=== PATIENT | female | born 1945 | race Caucasian/White ===

== ENCOUNTER 2020-04-13 20:04 | Observation (INO) | payer MEDICARE ==
[~2020-04-13 20:04] MED LIST: Iopamidol-370 76% 500 ML 1 ML ONE
[2020-04-13 20:45] LABS: #Lymphocytes 0.9 thou/uL (1.20-3.40); #Monocytes 1.5 thou/uL (0.11-0.59); #Neutrophils 12.2 thou/uL (1.40-6.50); %Basophils 0.3 % (0.0-1.0); %Eosinophils 0.3 % (0.0-10.0); %Lymphocytes 5.9 % (21.0-51.0); %Monocytes 9.9 % (0.0-10.0); %Neutrophils 83.6 % (42.0-75.0); Hemoglobin 12.2 g/dL (12.0-16.0); Mean Corpuscular HGB CONC 34.2 g/dL (32.0-36.0); Mean Corpuscular Hemoglobin 33.2 pg (27.0-31.0); Mean Platelet Volume 7.1 fL (7.4-10.4); Platelet Count 221 thou/uL (130-400); RBC Distribution Width 11.6 % (11.5-14.5); Red Blood Cell (RBC) Count 3.67 mill/uL (4.20-5.40); White Blood Cell (WBC) Count 14.6 thou/uL (4.8-10.8)
--- NOTE | 2020-04-13 21:04 | RAD ---
PELVIS ONE VIEW: 04/13/20 HISTORY: Injury. Fall. COMPARISON: None. FINDINGS: Mild narrowing of both hip joints. Mild narrowing of the pubic symphysis. Moderate enthesopathic abhijeet nges. Calcifications along the hamstring tendons. Moderate left SI joint narrowing. Femoral heads and necks are without fracture. There are capsular ca lcifications of both hips. IMPRESSION: No acute displaced fracture or malalignment. POS: HOME
[2020-04-13 21:06] LABS: ALT (SGPT) 16 U/L (8-55); AST (SGOT) 45 U/L (5-34); Albumin 3.8 g/dL (3.4-4.8); Alkaline Phosphatase 81 U/L (40-110); Anion Gap 17 mmol/L (10-20); BUN (Urea Nitrogen) 43 mg/dL (9.8-20.1); Bilirubin, Total 0.9 mg/dL (0.2-1.2); CK (CPK) 849 U/L (29-168); Calc. Creatinine Clearance 0 mL/min (70-130); Calcium 10.1 mg/dL (7.8-10.44); Carbon Dioxide 29 mmol/L (23-31); Chloride 97 mmol/L (98-107); Globulin 2.8 g/dL (2.4-3.5); Glucose 109 mg/dL (83-110); Potassium 3.1 mmol/L (3.5-5.1); Protein, Total 6.6 g/dL (6.0-8.3); Sodium 140 mmol/L (136-145)
--- NOTE | 2020-04-13 21:10 | RAD ---
CHEST ONE VIEW: 04/13/20 HISTORY: Injury. COMPARISON: Thoracic spine radiograph from 2016. FINDINGS: There is cement within two mid thoracic vertebrae. Peripheral opacities in the left lower lobe. Multiple likely acute right rib fractures and small extrapleural hematoma. No definite pneumothorax. Heart size upper limits of normal as well as the pulmonary vasculature. Right glenoid osseous Bankart and humeral head Hill-Sachs deformity. IMPRESSION: 1. Multiple right rib fractures with small extrapleural hematoma. No definite pneumothorax. 2. Peripheral opacity left lung base may reflect aspiration or focal atelectasis. Follow-up radi ograph in 3 to 6 weeks recommended. 3. Evidence of recent right shoulder dislocation. POS: HOME
[2020-04-13] MEDS ORDERED: Ondansetron PF 4 MG/2 ML Vial ONE (21:11)
[2020-04-13] MEDS ORDERED: Fentanyl 100 MCG/2 ML VIAL ONE (21:11)
--- NOTE | 2020-04-13 21:13 | RAD ---
RIGHT HUMERUS TWO VIEW: 04/13/20 HISTORY: Fall. COMPARISON: None. FINDINGS: There appears to be a Hill-Sachs and osseous Bankart deformity of the right shoulder. Chronic lateral epicondylitis. IMPRESSION: Findings of right shoulder dislocation for which the right shoulder is currently reduced. Hill-Sachs deformity of posterolateral humeral head and osseous Bankart lesion of the anterior inferior glenoid . POS: HOME
--- NOTE | 2020-04-13 21:15 | CT ---
CT BRAIN WITHOUT CONTRAST: 04/13/20 HISTORY: Fall. COMPARISON: None. 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 No acute hemorrhage or infarct. No midline shift of mass effect. Ventricular size and extra-axial CSF spaces are normal for age. Calvarium is intact. The paranasal si nuses and mastoids are relatively clear. IMPRESSION: No acute posttraumatic intracranial sequela. POS: HOME
--- NOTE | 2020-04-13 21:21 | CT ---
CT CERVICAL SPINE WITHOUT CONTRAST: 04/13/20 HISTORY: Fall. COMPARISON: None. FINDINGS: Dense calcifications of the transverse ligament of the dens. The occipital condyles are intact. No od ontoid fracture. Cervical spine transverse processes are intact. The spinous processes are intact. The visualized upper ribs are intact. Likely chronic anterior superior end plate height loss of C7 an d T1 vertebral bodies with 30-40% anterior height loss. No linear lucency or sclerosis to suggest an acute component of these fractures. Osseous fusion of the right C4-5 posterior elements. No prevertebral hematoma. No cervical adenopathy. IMPRESSION: 1. No acute cervical spine fracture or malalignment. 2. [place] to be chronic superior end plate compression deformities at C7 and T1 without sclerosis nor cortical or medullary lucency to suggest acuity. POS: HOME
[2020-04-13 21:27] LABS: CKMB 5.8 ng/mL (0-6.6)
--- NOTE | 2020-04-13 22:19 | CT ---
CT chest with IV contrast CT abdomen and pelvis with IV contrast CT thoracic spine noncontrast CT lumbar spine noncontrast HISTORY: Fall. Chest and abdomen injury. Back injury. FINDINGS: Small amount of fluid is present within the dependent portion of the right pleural space wi th adjacent atelectasis and parenchymal scarring. Calcified granuloma at the right lung bases consistent with healed granulomatous disease. Mild chronic appearing scarring is present in the right upper lobe and the left posterior lung base. Acute appearing fractures involve the posterior aspect of right ribs 5, 6, and 7, with some comminuti on and mild expansion. No evidence of pneumothorax. Comminuted mildly displaced fracture also involves the inferior aspect of the right scapular body. Old healed bilateral rib fractures are also apparent. A 0.2 cm calculus is present within a nondilated calyx at the inferior pole of the atrophied left kid tanner. Cysts arise from the cortex of each kidney, measuring up to 1.1 cm at the superior pole of the right kidney and 1.6 cm the inferior pole of the left kidney. No evidence of bowel obstruction or inflammation. Vertebroplasty cement is associated with mild compression deformities of T7 and T8 vertebral bodies. No acute fracture or dislocation of the thoracolumbar spine evident. There are scattered mild to moderate degenerative changes. IMPRESSION : Right posterior rib fractures 5 through 7 and right scapular fracture. Small volume hemothorax. No ev idence of pneumothorax. Tiny nonobstructing left renal calculus. Other incidental-type findings as detailed above.
[2020-04-13 23:26] LABS: Bacteria/HPF None Seen HPF (None Seen); Bilirubin Negative (Negative); Blood, Urine Negative (Negative); Clarity Clear (Clear); Glucose, Urine (Dipstick) Normal (Negative); Ketone, Urine Negative (Negative); Leukocyte 75 Leu/uL (Negative); Nitrite Negative (Negative); Protein, Urine (Dipstick) Negative (Neg-Trace); Specific Gravity, Urine 1.039 (1.002-1.036); Squamous Epithelial 0-3 HPF (0-3); Urobilinogen Normal mg/dL (Less than 2)
[2020-04-14] MEDS ORDERED: Ondansetron PF 4 MG/2 ML Vial IVP PRN (00:07)
[2020-04-14] MEDS ORDERED: Ondansetron ODT 4 MG TAB PO PRN (00:07)
[2020-04-14] MEDS ORDERED: Cyclobenzaprine 10 MG TAB PO PRN (00:07)
[2020-04-14] MEDS ORDERED: Dextrose 50% Abboject 50 ML SYRINGE SLOW IVP PRN (00:07)
[2020-04-14] MEDS ORDERED: Dextrose 5% in Water 1,000 ML IV PRN (00:07)
--- NOTE | 2020-04-14 01:12 | HP ---
REQUESTING PHYSICIAN: Dr. Shah. ATTENDING SURGEON: Dr. Walton. CONSULTATIONS: Orthopedics, Dr. Francis. HISTORY OF PRESENT ILLNESS: The patient is a 75-year-old woman, who reports falling twice yesterday evening, the first one approximately 1900. After moving some boxes around, she tripped and fell over one of the boxes. She was able to get up, and later that night in the dark, she had forgotten that she had moved the boxes and had tripped over them again at approximately 11 o'clock, falling down, and was unable to get up at that time. The patient was unable to get to her phone. Fortunately, her neighbor whom she takes daily walks, was able to have EMS and the police department do welfare check, and they found the patient on the floor in her house. She was brought to the emergency department, where she underwent evaluation and examination, was noted to have right-sided rib fractures, right shoulder that appeared to have been dislocated and subsequently reduced, and elevated CPK and slightly elevated/indeterminate troponin. At which time, we were asked to evaluate the patient for admission and obtain orthopedic consultations. The patient denied loss of consciousness. The patient denied any syncopal events surrounding her fall, and she denied chest pain, shortness of breath, or radiating chest pain. ALLERGIES: ASPIRIN. THE PATIENT DOES NOT REMEMBER THE REACTION, JUST KNOWS THAT SHE WAS TOLD NOT TO TAKE IT. CURRENT MEDICATION: She does not recall, though she knows that she takes something for her high blood pressure. PAST MEDICAL HISTORY: Hypertension, hypothyroidism, chronic kidney disease, compression fractures 3 years ago. SURGICAL HISTORY: The patient reports pacemaker surgery and back surgery. SOCIAL HISTORY: The patient lives at home alone. She denies drug, tobacco, or alcohol use. REVIEW OF SYSTEMS: A 10-point review of systems is negative as otherwise stated. PHYSICAL EXAMINATION: VITAL SIGNS: Blood pressure 116/63, heart rate 69, respirations 20, oxygen saturation 95% on 2 L via nasal cannula, temperature is 98.0. GENERAL: The patient is resting comfortably in bed. She is awake, alert, conversant, appropriate. Her Cavour Coma Scale is 15. She is a poor historian regarding her medical history and surgical history. HEENT: Head is normocephalic. Eyes, extraocular motion intact. PERRLA bilaterally. Ears are atraumatic without discharge. Nose is atraumatic without discharge. Oropharynx is clear. NECK: Nontender. Trachea is midline with no JVD. CHEST: Clear to auscultation with moderate inspiratory and expiratory efforts. She is somewhat limited due to pain on her right side consistent with her fractures. HEART: Regular rate and rhythm. ABDOMEN: Soft, nontender with active bowel sounds. EXTREMITIES: Neurovascularly intact x4. The patient does have tenderness to palpation to her right shoulder, and she has right chest wall pain. BACK: By report is atraumatic and nontender. LABORATORY FINDINGS: White blood cell count 14.6, hemoglobin 12.2, hematocrit 35.6, platelets are 221. Sodium 140, potassium 3.1, chloride 97, CO2 of 29, BUN 43, creatinine 1.50, glucose 109. LFTs are unremarkable. CPK 849. CK-MB 5.8. Troponin 0.067. Urinalysis; positive leukocyte esterase, 4-6 wbc's, no bacteria seen. RADIOGRAPHIC FINDINGS: CT of the brain without contrast shows no acute posttraumatic intracranial sequela. CT of the C-spine without contrast shows no acute cervical spine fracture or malalignment. CT of the chest, abdomen, and pelvis with IV contrast shows right posterior rib fractures 5 through 7 and a right scapular fracture. There is also noted to have a small volume hemothorax without pneumothorax. AP chest x-ray shows multiple right-sided rib fractures. Views of the right humerus show findings of a right shoulder dislocation, for which the right shoulder is currently reduced. Hill-Sachs deformity of posterolateral humeral head and osseous Bankart lesion of the anterior-inferior glenoid are noted. AP pelvis shows no acute displaced fracture or malalignment. ASSESSMENT/PLAN: 1. Status post fall with remote presentation. 2. Right-sided rib fractures, 5, 6, and 7. 3. Right shoulder injury, consistent with recent dislocation, currently reduced. 4. Rhabdomyolysis. 5. Indeterminate troponin without EKG changes. PLAN: Plan will be to admit the patient to the surgical floor. We will repeat her CK, troponin in the morning. We will repeat her chest x-ray in the morning. She will have pulmonary toilet, gastritis, mechanical VTE prophylaxis. The patient was given 2 L of normal saline here in the emergency department for her elevated CK. We will repeat her labs and follow this. We have reduced her normal saline to a rate of 120 mL/h. We will follow her urinary output also. The evaluation, examination, laboratory, and radiographic findings were discussed with Dr. Walton after this dictation. Job ID: [id number]
[2020-04-14 01:31] LABS: Troponin I 0.076 ng/mL (< 0.028)
[2020-04-14] MEDS: Sodium Chloride 0.9% 1,000 ML IV SCH ×3 (03:17→18:28)
[2020-04-14] MEDS: traMADol HCl 50 MG TAB PO PRN ×3 (03:20→16:15)
[2020-04-14 03:29] VITALS: BMI 20.5
[2020-04-14 04:07] LABS: #Eosinphils 0.1 thou/uL (0.0-0.7); #Lymphocytes 0.9 thou/uL (1.20-3.40); #Monocytes 1.1 thou/uL (0.11-0.59); #Neutrophils 8.9 thou/uL (1.40-6.50); %Basophils 0.2 % (0.0-1.0); %Eosinophils 0.8 % (0.0-10.0); %Lymphocytes 7.8 % (21.0-51.0); %Neutrophils 81.2 % (42.0-75.0); Hemoglobin 10.6 g/dL (12.0-16.0); Mean Corpuscular HGB CONC 33.8 g/dL (32.0-36.0); Mean Corpuscular Hemoglobin 33.1 pg (27.0-31.0); Mean Corpuscular Volume 97.9 fL (78.0-98.0); Platelet Count 191 thou/uL (130-400); RBC Distribution Width 11.7 % (11.5-14.5); White Blood Cell (WBC) Count 10.9 thou/uL (4.8-10.8)
[2020-04-14 04:22] LABS: Anion Gap 14 mmol/L (10-20); BUN (Urea Nitrogen) 37 mg/dL (9.8-20.1); CK (CPK) 638 U/L (29-168); Calc. Creatinine Clearance 39 mL/min (70-130); Calcium 8.8 mg/dL (7.8-10.44); Carbon Dioxide 29 mmol/L (23-31); Chloride 99 mmol/L (98-107); Glucose 127 mg/dL (83-110); Magnesium 1.7 mg/dL (1.6-2.6); Phosphorus 2.6 mg/dL (2.3-4.7); Sodium 139 mmol/L (136-145)
[2020-04-14 04:24] LABS: Potassium 2.8 mmol/L (3.5-5.1)
[2020-04-14 04:26] LABS: Troponin I 0.063 ng/mL (< 0.028)
[2020-04-14] MEDS ORDERED: Magnesium 2 GM/50 ML 2 GM in Premix Bag 1 BAG IVPB SCH (05:00)
[2020-04-14] MEDS: Acetaminophen 325 MG TAB PO SCH ×4 (05:17→23:27)
[2020-04-14] MEDS ORDERED: Potassium Phosphate 30 MMOL in Sodium Chloride 0.9% 250 ML 250 ML IVPB SCH (05:30)
--- NOTE | 2020-04-14 08:41 | RAD ---
PORTABLE CHEST: COMPARISON: Prior day's study. HISTORY: Fall with rib fractures, followup. FINDINGS: Heart size is within normal limits. Blunting to the left costophrenic angle is a similar finding to the previous exam. Right-sided rib fractures are again noted. I do not appreciate a definite pneumo thorax on this exam. Pleural changes in the right lung are also stable. IMPRESSION: Essentially stable chest. POS: JOSE LUIS
[2020-04-14] MEDS ORDERED: Famotidine 20 MG TAB PO SCH (09:00)
[2020-04-14] MEDS: Gabapentin 100 MG CAP PO SCH ×2 (09:12→21:03)
--- NOTE | 2020-04-14 13:51 | CON ---
DATE OF CONSULTATION: REQUESTING PHYSICIAN: Isaias Walton MD CONSULTING PHYSICIAN: Dylan Francis MD REASON FOR CONSULTATION: Right shoulder scapular fracture with shoulder dislocation and spontaneous relocation. BRIEF CLINICAL HISTORY: Selena is a 75-year-old female who was admitted by the trauma team after she fell yesterday evening at home, resulting in several rib fractures on the right and a scapular fracture and a shoulder dislocation, which was spontaneously reduced. It is a mechanical fall and she tripped over some boxes that she had been moving. Our service has been consulted for evaluation of the shoulder. Plain radiographs have been obtained, which demonstrated a Hill-Sachs deformity, suggestive of dislocation event, but otherwise the shoulder has been reduced. No fractures were identified. PHYSICAL EXAMINATION: Visual inspection of the right upper extremity demonstrates to have normal external landmarks, can internally and externally rotate. She can abduct, but she has provocative discomfort with abduction of the shoulder. Forward flexion is limited with pain to about 35 to 40 degrees of forward flexion. She is neurovascularly intact in the right upper extremity. Tenderness is elicited with palpation along the shoulder joint line. IMAGING STUDIES: Two-view right humerus demonstrates Hill-Sachs deformity of proximal humerus, but otherwise no fracture has been identified. IMPRESSION: 1. Right shoulder traumatic dislocation with spontaneous relocation and reduction. 2. Right scapular wing tip fracture. PLAN: We will have the patient placed in a sling for comfort and no operative management is recommended at this time. We will see the patient back in clinic in 3 to 4 weeks for clinical examination. Job ID: [id number]
--- NOTE | 2020-04-14 13:59 | PRG ---
DATE OF SERVICE: 04/14/2020 The patient was seen by Dr. Sixto Morton. SUBJECTIVE: Ms. Mccartney is a 75-year-old female, hospital day #1, status post falling and being found on the ground for 20+ hours. She states there is mechanical fall. She initially fell over a box and then she was fine at that time, feels like her 2nd fall actually reduced her right shoulder dislocation and she laid in the bathroom for some time. She did have a slight elevation in her troponin. Therefore, she was placed on telemetry. quality assurance monitor body shows a paced and sinus rhythm throughout the night with no further ectopy. She has no chest pain and no shortness of breath, and actually wants to get up and go home. She has no echocardiogram in our system. She said it has been all over a year since she has had an echocardiogram. She denies any type of syncope. She denies any nausea. Denies any vomiting. Denies any pain other than her shoulder and rib pain. Repeat x-ray today is stable with no pneumothorax. Rib fractures on the right side are noted. Her troponin has remained stable. An echocardiogram is pending. OBJECTIVE: VITAL SIGNS: Temperature is 98.2, blood pressure 118/75, heart rate is 70, breathing 22 times per minute, and 96% on 2 L oxygen nasal cannula, which she wears at home at night only. GENERAL: A 75-year-old female was sitting up, does have some bruises noted, but in no acute distress. Nontoxic appearing. HEENT: Normocephalic and atraumatic. Trachea is midline. No JVD is appreciated. RESPIRATORY: Equal rise and fall. Bilateral breath sounds clear to auscultation of upper and lower lobes bilaterally. CARDIOVASCULAR: She does have murmur noted, pacemaker noted in left chest, but has regular rhythm. She has no edema. ABDOMEN: Soft and nontender. PELVIS: Stable. MUSCULOSKELETAL: She is able to move her extremities. Did not have her fully range her upper extremity secondary to her right shoulder previous dislocations/subluxation and this is in a sling. NEUROLOGIC: Alert and oriented to person, place, time, and event. GCS is 15. SKIN: Warm and dry. PSYCHIATRIC: Normal mood and affect. LABORATORY DATA: From today: A white blood cell count is 10.0, platelets are 191, and hemoglobin and hematocrit are 7.6 and 31.4 respectively. Sodium is 139, potassium 2.8, chloride is 99, CO2 is 29, creatinine 1.29, and glucose 127. Phosphorus is 2.6. Magnesium is 1.8. CK is 638. Troponin 0.067 to 0.076 to 0.063. Urine has some casts, high specific gravity with trace leukocyte esterase, no nitrites, blood, or ketones. Chest x-ray today is stable. ASSESSMENT: 1. Status post fall, mechanical in nature. 2. Right rib fractures 5, 6, and 7. 3. Right shoulder injury, dislocation versus subluxation, has been reduced in a sling. 4. Very mild rhabdomyolysis, now it is improving. 5. History of cardiac disease and acute respiratory failure, requiring oxygen at night. PLAN: 1. Continue to monitor the patient. 2. PT/OT orders. 3. Echocardiogram. 4. Orthopedics has been consulted. Will await for their recommendations, likely nonoperative for the shoulder. May need followup. 5. Pain control as needed. 6. Continue all other supportive care. We will start DVT prophylaxis today. Follow up on the echocardiogram. Job ID: [id number]
[2020-04-14 14:56] LABS: SARS-CoV-2 MS2 Positive; SARS-CoV-2 N Gene Negative; SARS-CoV-2 S Gene Negative; SARS-CoV-2 by NAA Not Detected (NotDetected); SARS-CoV-2 orf1ab Negative
[2020-04-14] MEDS ORDERED: traMADol HCl 50 MG TAB PO PRN (17:20)
[2020-04-14] MEDS ORDERED: oxyCODONE 5 MG TAB PO PRN (19:59)
[2020-04-14] MEDS ORDERED: Gabapentin 300 MG CAP PO SCH (21:00)
[2020-04-14] MEDS ORDERED: FLU VACC QS2020-21(65YR UP)/PF 240 MCG/0.7 ML SYRINGE IM ONE (21:00)
[2020-04-14] MEDS: Potassium Chloride 20 MEQ TAB PO SCH (21:02)
[2020-04-14] MEDS: Atorvastatin Calcium 40 MG TAB PO SCH (21:03)
[2020-04-14] MEDS: Heparin 5,000 UNITS/ML VIAL SC SCH ×2 (21:03→21:11)
[2020-04-14] MEDS: traMADol HCl 50 MG TAB PO SCH (23:25)
[2020-04-15 05:45] LABS: Anion Gap 12 mmol/L (10-20); BUN (Urea Nitrogen) 26 mg/dL (9.8-20.1); Calc. Creatinine Clearance 48 mL/min (70-130); Calcium 8.7 mg/dL (7.8-10.44); Carbon Dioxide 28 mmol/L (23-31); Chloride 105 mmol/L (98-107); Glucose 90 mg/dL (83-110); Magnesium 1.9 mg/dL (1.6-2.6); Phosphorus 1.9 mg/dL (2.3-4.7); Potassium 3.5 mmol/L (3.5-5.1); Sodium 141 mmol/L (136-145)
[2020-04-15] MEDS: Acetaminophen 325 MG TAB PO SCH ×4 (06:14→23:30)
[2020-04-15] MEDS: traMADol HCl 50 MG TAB PO SCH ×4 (06:15→23:32)
[2020-04-15] MEDS: Levothyroxine Sodium 112 MCG TAB PO SCH (06:19)
[2020-04-15] MEDS ORDERED: Sodium Phosphate 30 MMOL in Sodium Chloride 0.9% 250 ML 250 ML IVPB SCH (06:30)
[2020-04-15] MEDS: Potassium Chloride 20 MEQ TAB PO SCH ×2 (08:48→20:44)
[2020-04-15] MEDS: Gemfibrozil 600 MG TAB PO SCH (08:49)
[2020-04-15] MEDS: Clopidogrel Bisulfate 75 MG TAB PO SCH (08:49)
[2020-04-15] MEDS: Bumetanide 1 MG TAB PO SCH (08:49)
[2020-04-15] MEDS: Gabapentin 100 MG CAP PO SCH ×2 (08:50→20:44)
[2020-04-15] MEDS: Heparin 5,000 UNITS/ML VIAL SC SCH ×3 (08:50→20:44)
[2020-04-15] MEDS: Metoprolol Tartrate 100 MG TAB PO SCH (08:50)
--- NOTE | 2020-04-15 13:48 | PRG ---
DATE OF SERVICE: 04/15/2020 SUBJECTIVE: Ms. Mccartney is a 75-year-old female, who is hospital day #2, postop day #2, status post fall with delayed presentation, had right rib fractures as well as right scapular fracture. No pneumothorax. Had a slight elevation in her troponin. Troponins have been level. Echocardiogram, EF of 50% to 55%. No regional wall motion abnormalities. Does have some diastolic dysfunction. The patient is yet to be placed in a sling. Discussed with the bedside RN. Once again, states that her pain is controlled. Initially, she was very insistent on going home today, she does not want to go to rehab. However, [place] I discussed I am concerned about her falling again. She verbalized understanding of the same. She wants to go home. Her nephew is on his way to come assist her at this time. We have placed a case management consult note and ordered in for home health and home PT at the patient's request. She has remained hemodynamically stable otherwise. Her electrolytes have been replaced this morning. She is tolerating a diet. She is getting up with PT at the time of my assessment. OBJECTIVE: VITAL SIGNS: Temperature is 98.3, blood pressure 118/58, heart rate is 93, breathing 16 times per minute, 95% on 2 L oxygen nasal cannula. GENERAL: This is a 75-year-old female, sitting up in bed, no acute distress. HEENT: Normocephalic, atraumatic. Trachea is midline. RESPIRATORY: Equal rise and fall. Bilateral breath sounds clear. CARDIOVASCULAR: Regular rate and rhythm. ABDOMEN: Soft and nontender. PELVIS: Stable. MUSCULOSKELETAL: She is able to move her extremities. She does have bruising noted to the upper extremities bilaterally. She has no edema. NEURO: Alert and oriented to person, place, time, and event. GCS is 15. PSYCH: Normal mood and affect. LABORATORY DATA: Sodium is 141, potassium 3.5, chloride is 105, CO2 is 28, creatinine is 1.08, phosphorus is 1.9, magnesium is 1.9. ASSESSMENT: 1. Fall with delayed presentation. 2. Mechanical fall. 3. Right rib fractures, 5, 6, and 7. 4. Right shoulder injury, dislocation versus subluxation. 5. Mild rhabdomyolysis that is resolving. 6. History of cardiovascular disease, acute respiratory failure requiring oxygen at night. PLAN: 1. Initially, the patient was insistent on going home, we were going to discharge her with home health and home PT; however, after discussion with her nephew, the patient will stay another night and have a safe discharge plan. I have encouraged her to consider rehab if she qualifies. PT is evaluating at this time. 2. Continue pain control. 3. The patient does not like Tylenol, therefore, we will provide tramadol and see if this is working. 4. I have encouraged for sling and discussed with bedside RN. She is going to get a sling for the patient. 5. Replace electrolytes as needed. 6. Can get off the telemetry, and will move to the surgery armendariz for tonight. 7. Continue all other supportive care. Answered all questions of the patient at the bedside coordinating with PT and the bedside RN. Job ID: [id number]
[2020-04-15] MEDS: Atorvastatin Calcium 40 MG TAB PO SCH (20:44)
[2020-04-16] MEDS: Acetaminophen 325 MG TAB PO SCH ×2 (06:44→12:33)
[2020-04-16] MEDS: traMADol HCl 50 MG TAB PO SCH ×2 (06:44→12:32)
[2020-04-16] MEDS: Levothyroxine Sodium 112 MCG TAB PO SCH (06:45)
[2020-04-16] MEDS ORDERED: Metoprolol Tartrate 100 MG TAB PO SCH (10:15)
[2020-04-16] MEDS: Bumetanide 1 MG TAB PO SCH (10:39)
[2020-04-16] MEDS: Gabapentin 100 MG CAP PO SCH (10:40)
[2020-04-16] MEDS: Heparin 5,000 UNITS/ML VIAL SC SCH (10:41)
[2020-04-16] MEDS: Clopidogrel Bisulfate 75 MG TAB PO SCH (10:41)
[2020-04-16] MEDS: Gemfibrozil 600 MG TAB PO SCH (10:41)
[2020-04-16] MEDS: Potassium Chloride 20 MEQ TAB PO SCH (10:41)
[2020-04-16] MEDS: Metoprolol Tartrate 100 MG TAB PO SCH (10:42)
[2020-04-16 12:21] VITALS: TEMP 98.1
[2020-04-16 16:33] VITALS: BP 118/80
--- NOTE | 2020-04-17 00:48 | DIS ---
DATE OF ADMISSION: 04/14/2020 DATE OF DISCHARGE: 04/16/2020 DISCHARGING PHYSICIAN: Dr. Aram Nair CONSULTING PHYSICIAN: Dr. Wheeler, with Orthopedic Surgery. ADMITTING DIAGNOSES: 1. Fall with delayed presentation. 2. Right shoulder dislocation in reduction prior to arrival. 3. Right rib fractures 5, 6 and 7. 4. Right shoulder rhabdomyolysis, mild. 5. Indeterminate troponin. Interventions here, echocardiogram showed an ejection fraction 55% to 60% with diastolic dysfunction noted. HOSPITAL COURSE: The patient was admitted through the emergency department. She was found down on the ground for 17 hours, mild rhabdomyolysis. She improved quite nicely. She had the rib fractures, and a right shoulder injury. She was treated with a sling, nonoperative approach per Orthopedics. Pain control was obtained. Patient initially waning to be discharged on hospital day #1, however, she agreed to stay. Case Management was consulted for home physical therapy as patient is not interested and refused multiple times inpatient rehab despite her falls. She does live alone. She has arranged for neighbor to stay with her after discharge. Her pain is controlled. She does not like Tylenol. She is not able to take ibuprofen. She is taking tramadol and gabapentin here. She states she has plenty of these at home. She does not need a prescription. She is ambulatory. She has had a bowel movement on date of discharge. She is tolerating a diet. She is on 2 L of oxygen nasal cannula, which is her baseline. She has been taken off IV fluids. Spontaneously voiding. The patient's followup will be with Dr. Wheeler in 2-3 weeks for films. DISCHARGE INSTRUCTIONS: 1. Follow up with her PCP, Dr. Dela Cruz, discussed this with the patient. 2. Can follow up with Trauma Surgery as needed. PHYSICAL EXAMINATION: VITAL SIGNS: On the day of discharge, temperature is 98.0, blood pressure is 99/58, heart rate is 84, respiratory rate is 18, pulse ox is 94% on room air. GENERAL: This is a 75-year-old female, sitting up, dressed in no acute distress. HEENT: Normocephalic, atraumatic. RESPIRATORY: Equal rise and fall. Bilateral breath sounds clear. Slight rhonchi noted. CARDIOVASCULAR: Regular rate and rhythm. She has a pacemaker noted in the left chest. ABDOMEN: Soft and nontender. PELVIS: Stable. MUSCULOSKELETAL: She moves all extremities. She does have pain about the right shoulder at times, but does not want the sling on until she is leaving. NEUROLOGIC: Alert and oriented to person, place, time and event. GCS is 15. PSYCHIATRIC: Normal mood and affect. LABORATORY DATA: No laboratory data to review today. PLAN: 1. Again discharge plan as noted above, discharging to home. 2. We will have home PT. 3. We will have neighbor stay with her for safety measures. 4. We have encouraged her to have the ability to call for help. She verbalized that she is working on this and will have a cellphone. Answered all questions of the patient at bedside, greater than 30 minutes was taken in discharge planning of this patient. Job ID: [id number]
[2020-04-17] MEDS ORDERED: Metoprolol Tartrate 100 MG TAB PO SCH (09:00)
--- NOTE | 2020-04-22 16:33 | EKG ---
Test Reason : FALL Blood Pressure : / mmHG Vent. Rate : 070 BPM Atrial Rate : 070 BPM P-R Int : 152 ms QRS Dur : 088 ms QT Int : 428 ms P-R-T Axes : 030 -29 030 degrees QTc Int : 462 ms Electronic atrial pacemaker Confirmed by BJ PERSAUD DO ([id number]), editor map GENE CRUZ ([id number]) on 04/22/2020 4:33:29 PM Referred By: Confirmed By:BJ PERSAUD DO
== END 2020-04-16 16:50 | disposition home health service (06) ==
LOC: ERS 20:04 → 2NO 22:53 → UNDOADMOB 22:53 → 2NO 04-14 01:42 → SURG B 04-15 14:57
PROVIDERS: ADMIT Surgery; ATTEND Surgery
DX: S22.41XA Multiple fractures of ribs, right side, initial encounter for closed fracture (principal); S42.191A Fracture of other part of scapula, right shoulder, initial encounter for closed fracture; M62.82 Rhabdomyolysis; S42.291A Other displaced fracture of upper end of right humerus, initial encounter for closed fracture; I13.0 Hypertensive heart and chronic kidney disease with heart failure and stage 1 through stage 4 chronic kidney disease, or unspecified chronic kidney disease; N18.30 Chronic kidney disease, stage 3 unspecified; I50.9 Heart failure, unspecified; N17.9 Acute kidney failure, unspecified; E03.9 Hypothyroidism, unspecified; N20.0 Calculus of kidney; Z79.02 Long term (current) use of antithrombotics/antiplatelets; Z79.899 Other long term (current) drug therapy; Z88.6 Allergy status to analgesic agent; Z95.0 Presence of cardiac pacemaker; Z20.828 Contact with and (suspected) exposure to other viral communicable diseases; W18.09XA Striking against other object with subsequent fall, initial encounter
CPT/HCPCS: 70450; 71045 ×2; 71260; 72125; 72170; 73060; 74177; 80048 ×2; 80053; 82550 ×2; 82553; 83735 ×2; 84100 ×2; 84484 ×3; 85025 ×2; 93005; 93306; 94640 ×4; 96374; 96375; 97116 ×2; 97139 ×3; 97530; 97535; 99285; U0003; 36415; 81003; 81015; 87635; 96376; G0378; G0390; J1644; J2405; J3010; J3475; J7050; J7620; Q9967

== ENCOUNTER 2020-06-11 09:16 | Emergency (ER) | payer MEDICARE ==
--- NOTE | 2020-06-11 10:04 | RAD ---
Radiograph right foot 3 views: 06/11/2020 HISTORY: 75-year-old female with acute, traumatic right foot pain FINDINGS: Transversely oriented, essentially nondisplaced fracture at lateral base of fifth metatarsal. No displaced fracture identified. Mild hallux valgus with prominent bony hypertrophy of medial aspect of first metatarsal head. Mild to moderate DJD at first MTP joint. Diffuse osteopenia. Diffuse soft tissue edema. IMPRESSION: Acute, traumatic, essentially nondisplaced avulsion fracture at base of first metatarsal.:
--- NOTE | 2020-06-11 10:49 | RAD ---
RIGHT SHOULDER 3 PORTABLE VIEWS: Date: 06/11/2020 INDICATION: Fall with injury and pain. FINDINGS: Mildly comminuted, minimally displaced fracture involving the right humeral head. Mildly displaced fr agment along the region of the greater tuberosity. AC joint normally aligned. There are numerous right rib deformities from old fractures. These are stable when compared to the est film of 04/14/2020. IMPRESSION: Mildly comminuted and minimally displaced fracture involving the right humeral head. POS: [facility]
== END 2020-06-11 13:00 | disposition home or self-care (01) ==
LOC: ERS 09:16
DX: S92.354A Nondisplaced fracture of fifth metatarsal bone, right foot, initial encounter for closed fracture (principal); S42.201A Unspecified fracture of upper end of right humerus, initial encounter for closed fracture; E03.9 Hypothyroidism, unspecified; N18.30 Chronic kidney disease, stage 3 unspecified; I50.9 Heart failure, unspecified; I13.0 Hypertensive heart and chronic kidney disease with heart failure and stage 1 through stage 4 chronic kidney disease, or unspecified chronic kidney disease; W18.39XA Other fall on same level, initial encounter; Z79.899 Other long term (current) drug therapy
CPT/HCPCS: 93005

== ENCOUNTER 2020-08-01 18:43 | Inpatient (IN) | payer MEDICARE ==
[2020-08-01] MEDS ORDERED: Morphine 4 MG/ML VIAL ONE (20:10)
[2020-08-01] MEDS ORDERED: Ondansetron PF 4 MG/2 ML Vial ONE (20:10)
[2020-08-01 20:15] LABS: #Lymphocytes 0.6 thou/uL (1.20-3.40); #Monocytes 1.5 thou/uL (0.11-0.59); %Basophils 0.1 % (0.0-1.0); %Eosinophils 0.2 % (0.0-10.0); %Monocytes 10.1 % (0.0-10.0); %Neutrophils 85.6 % (42.0-75.0); Hemoglobin 13.2 g/dL (12.0-16.0); Mean Corpuscular HGB CONC 32.2 g/dL (32.0-36.0); Mean Corpuscular Hemoglobin 31.9 pg (27.0-31.0); Mean Corpuscular Volume 99.1 fL (78.0-98.0); Mean Platelet Volume 7.6 fL (7.4-10.4); Platelet Count 249 thou/uL (130-400); RBC Distribution Width 12.3 % (11.5-14.5); Red Blood Cell (RBC) Count 4.14 mill/uL (4.20-5.40); White Blood Cell (WBC) Count 15.2 thou/uL (4.8-10.8)
[2020-08-01 20:39] LABS: ALT (SGPT) 13 U/L (8-55); AST (SGOT) 20 U/L (5-34); Albumin 3.8 g/dL (3.4-4.8); Alkaline Phosphatase 142 U/L (40-110); Anion Gap 16 mmol/L (10-20); BUN (Urea Nitrogen) 35 mg/dL (9.8-20.1); Bilirubin, Total 0.8 mg/dL (0.2-1.2); Calc. Creatinine Clearance 0 mL/min (70-130); Calcium 10.4 mg/dL (7.8-10.44); Carbon Dioxide 31 mmol/L (23-31); Globulin 3.8 g/dL (2.4-3.5); Glucose 119 mg/dL (83-110); Lipase 8 U/L (8-78); Protein, Total 7.6 g/dL (5.8-8.1)
[2020-08-01 20:57] LABS: CKMB 0.3 ng/mL (0-6.6)
[2020-08-01 21:06] LABS: Chloride 91 mmol/L (98-107); Potassium 4.1 mmol/L (3.5-5.1); Sodium 135 mmol/L (136-145)
[2020-08-01] MEDS ORDERED: Acetaminophen/Codeine 30-300mg Tablet ONE (21:19)
[2020-08-01] MEDS ORDERED: Clopidogrel Bisulfate 75 MG TAB ONE (21:19)
[2020-08-01 23:15] LABS: Bacteria/HPF None Seen HPF (None Seen); Bilirubin Negative (Negative); Blood, Urine Negative (Negative); Clarity Clear (Clear); Glucose, Urine (Dipstick) Normal (Negative); Ketone, Urine Negative (Negative); Leukocyte 75 Leu/uL (Negative); Nitrite Negative (Negative); Protein, Urine (Dipstick) 20 mg/dL (Neg-Trace); Specific Gravity, Urine 1.021 (1.002-1.036); Squamous Epithelial 0-3 HPF (0-3); Urobilinogen Normal mg/dL (Less than 2); WBC/HPF 0-3 HPF (0-3)
[2020-08-02] MEDS ORDERED: Morphine 2 MG/ML VIAL ONE (00:05)
[2020-08-02 05:46] LABS: SARS-CoV-2 PCR by NAA Not Detected (NotDetected)
[2020-08-02 07:24] LABS: Troponin I 0.077 ng/mL (< 0.028)
[2020-08-02] MEDS: Enoxaparin Sodium 40 MG/0.4 ML SYRINGE SC SCH (08:31)
[2020-08-02] MEDS ORDERED: Melatonin 3 MG TAB PO PRN (09:27)
[2020-08-02] MEDS ORDERED: Gabapentin 300 MG CAP PO SCH (10:15)
[2020-08-02] MEDS ORDERED: Clopidogrel Bisulfate 75 MG TAB PO SCH (10:15)
[2020-08-02] MEDS ORDERED: Gemfibrozil 600 MG TAB PO SCH (10:15)
[2020-08-02] MEDS: Acetaminophen 325 MG TAB PO SCH ×3 (12:56→18:34)
[2020-08-02] MEDS ORDERED: Ipratropium Oral Inhaler INH SCH (13:00)
[2020-08-02] MEDS: Magnesium Chloride 64 MG TAB PO SCH (13:03)
[2020-08-02] MEDS: traMADol HCl 50 MG TAB PO PRN ×2 (14:31→20:14)
[2020-08-02] MEDS: Metoprolol Tartrate 100 MG TAB PO SCH (20:12)
[2020-08-02] MEDS: Cyclobenzaprine 10 MG TAB PO SCH (20:13)
[2020-08-02] MEDS: Zolpidem Tartrate 5 MG TAB PO SCH (20:13)
[2020-08-02] MEDS: traZODone HCl 50 MG TAB PO SCH (20:13)
[2020-08-02] MEDS: Potassium Chloride 20 MEQ TAB PO SCH (20:13)
[2020-08-02] MEDS: Atorvastatin Calcium 40 MG TAB PO SCH (20:14)
[2020-08-02] MEDS: [UNRECOGNIZED DRUG - OTHER] INH SCH (21:50)
[2020-08-03] MEDS: traMADol HCl 50 MG TAB PO PRN ×3 (01:43→20:13)
[2020-08-03] MEDS: Acetaminophen 325 MG TAB PO SCH ×5 (01:44→23:50)
[2020-08-03 05:48] LABS: #Eosinphils 0.2 thou/uL (0.0-0.7); #Lymphocytes 0.9 thou/uL (1.20-3.40); #Monocytes 1.1 thou/uL (0.11-0.59); #Neutrophils 11.2 thou/uL (1.40-6.50); %Basophils 0.1 % (0.0-1.0); %Eosinophils 1.5 % (0.0-10.0); %Lymphocytes 6.5 % (21.0-51.0); %Neutrophils 83.9 % (42.0-75.0); Hemoglobin 12.3 g/dL (12.0-16.0); Mean Corpuscular HGB CONC 30.5 g/dL (32.0-36.0); Mean Corpuscular Hemoglobin 30.4 pg (27.0-31.0); Mean Corpuscular Volume 99.6 fL (78.0-98.0); Mean Platelet Volume 7.6 fL (7.4-10.4); Platelet Count 287 thou/uL (130-400); RBC Distribution Width 12.2 % (11.5-14.5); Red Blood Cell (RBC) Count 4.04 mill/uL (4.20-5.40); White Blood Cell (WBC) Count 13.4 thou/uL (4.8-10.8)
[2020-08-03 06:13] LABS: Anion Gap 18 mmol/L (10-20); BUN (Urea Nitrogen) 38 mg/dL (9.8-20.1); Calc. Creatinine Clearance 30 mL/min (70-130); Calcium 10.5 mg/dL (7.8-10.44); Carbon Dioxide 31 mmol/L (23-31); Chloride 87 mmol/L (98-107); Glucose 151 mg/dL (83-110); Sodium 132 mmol/L (136-145)
[2020-08-03] MEDS: Levothyroxine Sodium 112 MCG TAB PO SCH (06:41)
[2020-08-03] MEDS: [UNRECOGNIZED DRUG - OTHER] INH SCH ×2 (06:52→19:20)
[2020-08-03] MEDS ORDERED: Clopidogrel Bisulfate 75 MG TAB PO SCH (09:00)
[2020-08-03] MEDS ORDERED: Gabapentin 300 MG CAP PO SCH (09:00)
[2020-08-03] MEDS: Enoxaparin Sodium 40 MG/0.4 ML SYRINGE SC SCH (09:52)
[2020-08-03] MEDS: Magnesium Chloride 64 MG TAB PO SCH (09:53)
[2020-08-03] MEDS: Gemfibrozil 600 MG TAB PO SCH (09:53)
[2020-08-03] MEDS: Potassium Chloride 20 MEQ TAB PO SCH ×2 (09:54→20:13)
[2020-08-03] MEDS: Cyclobenzaprine 10 MG TAB PO SCH ×3 (09:55→20:12)
[2020-08-03] MEDS: Clopidogrel Bisulfate 75 MG TAB PO SCH (09:56)
[2020-08-03] MEDS: Metoprolol Tartrate 100 MG TAB PO SCH ×3 (09:56→20:13)
[2020-08-03] MEDS: prednisoLONE 15 MG/5 ML UDCUP PO SCH (11:05)
[2020-08-03] MEDS: cefTRIAXone\\ROCEPHIN 1 GM in Sodium Chloride 0.9% 100 ML IVPB SCH (15:18)
[2020-08-03] MEDS: Atorvastatin Calcium 40 MG TAB PO SCH (20:12)
[2020-08-03] MEDS: Zolpidem Tartrate 5 MG TAB PO SCH (20:13)
[2020-08-03] MEDS: Senokot S 8.6-50 MG TAB PO SCH (20:13)
[2020-08-03] MEDS: traZODone HCl 50 MG TAB PO SCH (20:13)
[2020-08-04 05:19] LABS: #Eosinphils 0.4 thou/uL (0.0-0.7); #Lymphocytes 0.7 thou/uL (1.20-3.40); #Neutrophils 7.8 thou/uL (1.40-6.50); %Basophils 0.2 % (0.0-1.0); %Eosinophils 4.2 % (0.0-10.0); %Neutrophils 78.5 % (42.0-75.0); Hemoglobin 11.5 g/dL (12.0-16.0); Mean Corpuscular HGB CONC 32.3 g/dL (32.0-36.0); Mean Corpuscular Hemoglobin 31.6 pg (27.0-31.0); Mean Corpuscular Volume 97.9 fL (78.0-98.0); Mean Platelet Volume 7.2 fL (7.4-10.4); Platelet Count 302 thou/uL (130-400); RBC Distribution Width 12.2 % (11.5-14.5); Red Blood Cell (RBC) Count 3.63 mill/uL (4.20-5.40)
[2020-08-04] MEDS: Levothyroxine Sodium 112 MCG TAB PO SCH (05:38)
[2020-08-04 05:39] LABS: Anion Gap 16 mmol/L (10-20); BUN (Urea Nitrogen) 39 mg/dL (9.8-20.1); Calc. Creatinine Clearance 33 mL/min (70-130); Calcium 10.5 mg/dL (7.8-10.44); Carbon Dioxide 29 mmol/L (23-31); Chloride 90 mmol/L (98-107); Glucose 108 mg/dL (83-110); Potassium 4.4 mmol/L (3.5-5.1); Sodium 131 mmol/L (136-145)
[2020-08-04] MEDS: Acetaminophen 325 MG TAB PO SCH ×4 (06:11→23:06)
[2020-08-04] MEDS: [UNRECOGNIZED DRUG - OTHER] INH SCH ×2 (06:53→18:44)
[2020-08-04] MEDS: Enoxaparin Sodium 30 MG/0.3 ML SYRINGE SC SCH (09:38)
[2020-08-04] MEDS: prednisoLONE 15 MG/5 ML UDCUP PO SCH (09:38)
[2020-08-04] MEDS: Gemfibrozil 600 MG TAB PO SCH (09:39)
[2020-08-04] MEDS: Magnesium Chloride 64 MG TAB PO SCH (09:39)
[2020-08-04] MEDS: Clopidogrel Bisulfate 75 MG TAB PO SCH (09:40)
[2020-08-04] MEDS: Senokot S 8.6-50 MG TAB PO SCH ×2 (09:40→20:40)
[2020-08-04] MEDS: Metoprolol Tartrate 100 MG TAB PO SCH ×3 (09:40→20:41)
[2020-08-04] MEDS: Cyclobenzaprine 10 MG TAB PO SCH ×3 (09:40→20:40)
[2020-08-04] MEDS: Potassium Chloride 20 MEQ TAB PO SCH ×2 (09:50→20:41)
[2020-08-04] MEDS ORDERED: Calcium Carbonate 500 MG ChewTAB PO SCH (12:45)
[2020-08-04] MEDS: cefTRIAXone\\ROCEPHIN 1 GM in Sodium Chloride 0.9% 100 ML IVPB SCH (15:06)
[2020-08-04] MEDS: traMADol HCl 50 MG TAB PO PRN (15:06)
[2020-08-04] MEDS ORDERED: PROPAFENONE 225 MG PO SCH (17:00)
[2020-08-04] MEDS: Atorvastatin Calcium 40 MG TAB PO SCH (20:40)
[2020-08-04] MEDS: Zolpidem Tartrate 5 MG TAB PO SCH (20:40)
[2020-08-04] MEDS: traZODone HCl 50 MG TAB PO SCH (20:41)
[2020-08-04] MEDS: PROPAFENONE 225 MG PO SCH (23:05)
[2020-08-05] MEDS: Levothyroxine Sodium 112 MCG TAB PO SCH (05:03)
[2020-08-05] MEDS: Acetaminophen 325 MG TAB PO SCH ×3 (05:06→16:55)
[2020-08-05] MEDS: PROPAFENONE 225 MG PO SCH ×3 (05:06→22:25)
[2020-08-05] MEDS: traMADol HCl 50 MG TAB PO PRN (05:08)
[2020-08-05] MEDS: [UNRECOGNIZED DRUG - OTHER] INH SCH ×2 (07:03→18:30)
[2020-08-05] MEDS: Metoprolol Tartrate 100 MG TAB PO SCH ×3 (09:24→20:29)
[2020-08-05] MEDS: Clopidogrel Bisulfate 75 MG TAB PO SCH (09:24)
[2020-08-05] MEDS: Gemfibrozil 600 MG TAB PO SCH (09:25)
[2020-08-05] MEDS: Potassium Chloride 20 MEQ TAB PO SCH ×2 (09:27→20:29)
[2020-08-05] MEDS: Magnesium Chloride 64 MG TAB PO SCH (09:28)
[2020-08-05] MEDS: Enoxaparin Sodium 30 MG/0.3 ML SYRINGE SC SCH (09:28)
[2020-08-05] MEDS: Cyclobenzaprine 10 MG TAB PO SCH ×3 (09:28→20:29)
[2020-08-05] MEDS: Senokot S 8.6-50 MG TAB PO SCH ×2 (09:29→20:29)
[2020-08-05] MEDS: prednisoLONE 15 MG/5 ML UDCUP PO SCH (09:42)
[2020-08-05] MEDS: cefTRIAXone\\ROCEPHIN 1 GM in Sodium Chloride 0.9% 100 ML IVPB SCH (16:58)
[2020-08-05] MEDS: Zolpidem Tartrate 5 MG TAB PO SCH (20:29)
[2020-08-05] MEDS: Atorvastatin Calcium 40 MG TAB PO SCH (20:29)
[2020-08-05] MEDS: traZODone HCl 50 MG TAB PO SCH (20:31)
[2020-08-06] MEDS: Acetaminophen 325 MG TAB PO SCH ×6 (00:03→23:02)
[2020-08-06] MEDS: traMADol HCl 50 MG TAB PO PRN ×3 (00:03→18:25)
[2020-08-06] MEDS: Levothyroxine Sodium 112 MCG TAB PO SCH (05:19)
[2020-08-06] MEDS: PROPAFENONE 225 MG PO SCH ×3 (05:20→22:53)
[2020-08-06] MEDS: [UNRECOGNIZED DRUG - OTHER] INH SCH ×2 (06:44→19:16)
[2020-08-06] MEDS: Cyclobenzaprine 10 MG TAB PO SCH ×4 (07:57→20:00)
[2020-08-06] MEDS: Senokot S 8.6-50 MG TAB PO SCH ×2 (07:57→20:01)
[2020-08-06] MEDS: Clopidogrel Bisulfate 75 MG TAB PO SCH (07:58)
[2020-08-06] MEDS: Potassium Chloride 20 MEQ TAB PO SCH ×2 (07:58→20:01)
[2020-08-06] MEDS: Gemfibrozil 600 MG TAB PO SCH (07:58)
[2020-08-06] MEDS: Enoxaparin Sodium 30 MG/0.3 ML SYRINGE SC SCH (07:59)
[2020-08-06] MEDS: prednisoLONE 15 MG/5 ML UDCUP PO SCH (07:59)
[2020-08-06] MEDS: Metoprolol Tartrate 100 MG TAB PO SCH ×3 (08:00→20:01)
[2020-08-06] MEDS ORDERED: Zolpidem Tartrate 5 MG TAB PO PRN (10:51)
[2020-08-06] MEDS: Magnesium Chloride 64 MG TAB PO SCH (10:53)
[2020-08-06] MEDS: cefTRIAXone\\ROCEPHIN 1 GM in Sodium Chloride 0.9% 100 ML IVPB SCH (13:20)
[2020-08-06 15:05] LABS: #Lymphocytes 0.4 thou/uL (1.20-3.40); #Monocytes 0.2 thou/uL (0.11-0.59); #Neutrophils 6.1 thou/uL (1.40-6.50); %Basophils 0.2 % (0.0-1.0); %Eosinophils 0.6 % (0.0-10.0); %Lymphocytes 5.2 % (21.0-51.0); %Monocytes 2.8 % (0.0-10.0); %Neutrophils 91.1 % (42.0-75.0); Hemoglobin 11.6 g/dL (12.0-16.0); Mean Corpuscular HGB CONC 33.8 g/dL (32.0-36.0); Mean Corpuscular Hemoglobin 33.4 pg (27.0-31.0); Mean Corpuscular Volume 98.8 fL (78.0-98.0); Mean Platelet Volume 6.8 fL (7.4-10.4); Platelet Count 330 thou/uL (130-400); RBC Distribution Width 12.3 % (11.5-14.5); Red Blood Cell (RBC) Count 3.47 mill/uL (4.20-5.40); White Blood Cell (WBC) Count 6.7 thou/uL (4.8-10.8)
[2020-08-06 15:26] LABS: Anion Gap 16 mmol/L (10-20); BUN (Urea Nitrogen) 36 mg/dL (9.8-20.1); Calc. Creatinine Clearance 38 mL/min (70-130); Calcium 9.6 mg/dL (7.8-10.44); Carbon Dioxide 21 mmol/L (23-31); Chloride 103 mmol/L (98-107); Glucose 160 mg/dL (83-110); Potassium 5.1 mmol/L (3.5-5.1); Sodium 135 mmol/L (136-145)
[2020-08-06] MEDS: Atorvastatin Calcium 40 MG TAB PO SCH (20:01)
[2020-08-06] MEDS: Zolpidem Tartrate 5 MG TAB PO SCH (20:01)
[2020-08-06] MEDS: traZODone HCl 50 MG TAB PO SCH (20:01)
[2020-08-07] MEDS: PROPAFENONE 225 MG PO SCH ×3 (05:09→21:49)
[2020-08-07] MEDS: Levothyroxine Sodium 112 MCG TAB PO SCH (05:09)
[2020-08-07] MEDS: traMADol HCl 50 MG TAB PO PRN ×3 (05:13→21:49)
[2020-08-07] MEDS: Acetaminophen 325 MG TAB PO SCH ×3 (05:44→19:23)
[2020-08-07 05:45] LABS: #Basophils 0.1 thou/uL (0.0-0.2); #Eosinphils 0.4 thou/uL (0.0-0.7); #Lymphocytes 1.5 thou/uL (1.20-3.40); #Monocytes 0.7 thou/uL (0.11-0.59); #Neutrophils 5.3 thou/uL (1.40-6.50); %Basophils 0.7 % (0.0-1.0); %Eosinophils 5.2 % (0.0-10.0); %Lymphocytes 18.2 % (21.0-51.0); %Monocytes 9.2 % (0.0-10.0); %Neutrophils 66.7 % (42.0-75.0); Hemoglobin 10.7 g/dL (12.0-16.0); Mean Corpuscular HGB CONC 32.3 g/dL (32.0-36.0); Mean Corpuscular Hemoglobin 31.7 pg (27.0-31.0); Mean Corpuscular Volume 97.9 fL (78.0-98.0); Mean Platelet Volume 6.4 fL (7.4-10.4); Platelet Count 340 thou/uL (130-400); RBC Distribution Width 12.3 % (11.5-14.5); Red Blood Cell (RBC) Count 3.39 mill/uL (4.20-5.40)
[2020-08-07 05:59] LABS: Anion Gap 13 mmol/L (10-20); BUN (Urea Nitrogen) 27 mg/dL (9.8-20.1); Calc. Creatinine Clearance 45 mL/min (70-130); Calcium 9.3 mg/dL (7.8-10.44); Carbon Dioxide 23 mmol/L (23-31); Chloride 104 mmol/L (98-107); Glucose 88 mg/dL (83-110); Potassium 4.2 mmol/L (3.5-5.1); Sodium 136 mmol/L (136-145)
[2020-08-07] MEDS: [UNRECOGNIZED DRUG - OTHER] INH SCH ×2 (07:08→18:46)
[2020-08-07] MEDS: Bumetanide 1 MG TAB PO SCH (08:35)
[2020-08-07] MEDS: Cyclobenzaprine 10 MG TAB PO SCH ×3 (08:36→20:36)
[2020-08-07] MEDS: Potassium Chloride 20 MEQ TAB PO SCH ×2 (08:36→20:36)
[2020-08-07] MEDS: Enoxaparin Sodium 30 MG/0.3 ML SYRINGE SC SCH (08:37)
[2020-08-07] MEDS: Senokot S 8.6-50 MG TAB PO SCH ×2 (08:37→20:36)
[2020-08-07] MEDS: Metoprolol Tartrate 100 MG TAB PO SCH ×4 (08:37→20:40)
[2020-08-07] MEDS: Clopidogrel Bisulfate 75 MG TAB PO SCH (08:37)
[2020-08-07] MEDS: Gemfibrozil 600 MG TAB PO SCH (08:37)
[2020-08-07] MEDS: prednisoLONE 15 MG/5 ML UDCUP PO SCH (08:38)
[2020-08-07] MEDS: Magnesium Chloride 64 MG TAB PO SCH (09:33)
[2020-08-07] MEDS: cefTRIAXone\\ROCEPHIN 1 GM in Sodium Chloride 0.9% 100 ML IVPB SCH (15:26)
[2020-08-07] MEDS: traZODone HCl 50 MG TAB PO SCH (20:36)
[2020-08-07] MEDS: Atorvastatin Calcium 40 MG TAB PO SCH (20:36)
[2020-08-07] MEDS: Zolpidem Tartrate 5 MG TAB PO SCH (20:36)
[2020-08-08] MEDS: Acetaminophen 325 MG TAB PO SCH ×3 (01:22→13:29)
[2020-08-08 04:01] VITALS: TEMP 97.8
[2020-08-08 05:31] LABS: #Eosinphils 0.6 thou/uL (0.0-0.7); #Lymphocytes 1.4 thou/uL (1.20-3.40); #Monocytes 0.7 thou/uL (0.11-0.59); #Neutrophils 4.6 thou/uL (1.40-6.50); %Basophils 0.4 % (0.0-1.0); %Eosinophils 8.4 % (0.0-10.0); %Lymphocytes 19.6 % (21.0-51.0); %Monocytes 9.2 % (0.0-10.0); %Neutrophils 62.3 % (42.0-75.0); Hemoglobin 11.1 g/dL (12.0-16.0); Mean Corpuscular HGB CONC 32.8 g/dL (32.0-36.0); Mean Corpuscular Hemoglobin 31.9 pg (27.0-31.0); Mean Corpuscular Volume 97.4 fL (78.0-98.0); Mean Platelet Volume 6.3 fL (7.4-10.4); Platelet Count 378 thou/uL (130-400); RBC Distribution Width 12.3 % (11.5-14.5); Red Blood Cell (RBC) Count 3.49 mill/uL (4.20-5.40); White Blood Cell (WBC) Count 7.3 thou/uL (4.8-10.8)
[2020-08-08] MEDS: Levothyroxine Sodium 112 MCG TAB PO SCH (05:47)
[2020-08-08] MEDS: PROPAFENONE 225 MG PO SCH ×2 (05:49→14:35)
[2020-08-08 05:54] LABS: Anion Gap 16 mmol/L (10-20); BUN (Urea Nitrogen) 31 mg/dL (9.8-20.1); Calc. Creatinine Clearance 41 mL/min (70-130); Calcium 9.2 mg/dL (7.8-10.44); Carbon Dioxide 24 mmol/L (23-31); Chloride 100 mmol/L (98-107); Glucose 87 mg/dL (83-110); Potassium 3.9 mmol/L (3.5-5.1); Sodium 136 mmol/L (136-145)
[2020-08-08] MEDS: [UNRECOGNIZED DRUG - OTHER] INH SCH (08:39)
[2020-08-08] MEDS: Cyclobenzaprine 10 MG TAB PO SCH ×2 (09:03→14:36)
[2020-08-08] MEDS: Clopidogrel Bisulfate 75 MG TAB PO SCH (09:03)
[2020-08-08] MEDS: Bumetanide 1 MG TAB PO SCH ×2 (09:03→09:38)
[2020-08-08] MEDS: Enoxaparin Sodium 30 MG/0.3 ML SYRINGE SC SCH (09:04)
[2020-08-08] MEDS: Magnesium Chloride 64 MG TAB PO SCH (09:05)
[2020-08-08] MEDS: Gemfibrozil 600 MG TAB PO SCH (09:05)
[2020-08-08] MEDS: Potassium Chloride 20 MEQ TAB PO SCH (09:06)
[2020-08-08] MEDS: prednisoLONE 15 MG/5 ML UDCUP PO SCH (09:07)
[2020-08-08] MEDS: Senokot S 8.6-50 MG TAB PO SCH ×2 (09:08→09:37)
[2020-08-08] MEDS: Metoprolol Tartrate 100 MG TAB PO SCH ×2 (09:12→14:36)
[2020-08-08 13:14] VITALS: BMI 18.8
[2020-08-08 15:58] VITALS: BP 129/67
== END 2020-08-08 18:54 | disposition home health service (06) | DRG 563 ==
LOC: ERS 18:43 → ERHOLD 22:30 → 2SW 08-02 04:17
PROVIDERS: ADMIT Student in an Organized Health Care Education/Training Program; ATTEND Internal Medicine
DX: S82.65XA Nondisplaced fracture of lateral malleolus of left fibula, initial encounter for closed fracture (principal); E87.1 Hypo-osmolality and hyponatremia; N39.0 Urinary tract infection, site not specified; I13.0 Hypertensive heart and chronic kidney disease with heart failure and stage 1 through stage 4 chronic kidney disease, or unspecified chronic kidney disease; I24.8 Other forms of acute ischemic heart disease; Z20.822 Contact with and (suspected) exposure to COVID-19; W19.XXXA Unspecified fall, initial encounter; N18.30 Chronic kidney disease, stage 3 unspecified; I50.9 Heart failure, unspecified; E03.9 Hypothyroidism, unspecified; R29.6 Repeated falls; I48.91 Unspecified atrial fibrillation; Z95.0 Presence of cardiac pacemaker; Z88.6 Allergy status to analgesic agent; Z79.51 Long term (current) use of inhaled steroids; Z79.890 Hormone replacement therapy; Z79.899 Other long term (current) drug therapy; Z79.01 Long term (current) use of anticoagulants
CPT/HCPCS: 29515; 36415; 70450; 70486; 71045; 72125; 80048; 80053; 81003; 81015; 82533; 82553; 83605; 83690; 83880; 84484; 85025; 87635; 93005; 94640; 96374; J0696; J1650; J2270; J2405; J3490; J7510; J7620; U0003; U0005